=== PATIENT | male | born 1965 | race Caucasian/White ===

== ENCOUNTER 2018-09-21 09:14 | Emergency (ER) | payer OTHER ==
[2018-09-21] MEDS ORDERED: MORPHINE SULFATE 10 MG/ML INJ IV ONE (09:36)
[2018-09-21] MEDS ORDERED: ONDANSETRON HCL INJ/PF 4 MG/2 ML SDV IV ONE (09:36)
[2018-09-21] MEDS ORDERED: KETOROLAC TROMETHAMINE INJ/PF 30 MG/1 ML SDV IV ONE (09:36)
[2018-09-21] MEDS ORDERED: NORMAL SALINE 1000 ML 1,000 ML IV ONE ×2 (09:37→10:47)
--- NOTE | 2018-09-21 09:42 | ER Document Report ---
ED GI/ - General Chief Complaint: Flank Pain Stated Complaint: LEFT FLANK PAIN Time Seen by Provider: 09/21/18 09:31 Primary Care Provider: GALDINO JAIMES MD [ACTIVE STAFF] - Follow up as needed Information source: Patient Notes: Patient is a 53-year-old male that presents with around 48 hours of some left flank pain. Is intermittent. It is described as "pain". It radiates to the left lower quadrant and into the left testicle. Positive nausea and vomiting. No fevers or diarrhea. No history of kidney stones. No known family history of kidney stones. No aggravating or relieving factors. TRAVEL OUTSIDE OF THE [place] IN LAST 30 DAYS: No - HPI Patient complains to provider of: Other - See above Similar symptoms previously: No Recently seen / treated by doctor: No - Related Data Allergies/Adverse Reactions: No Known Allergies Allergy (Verified 09/21/18 09:14) Past Medical History - Social History Smoking Status: Unknown if Ever Smoked Family History: Reviewed & Not Pertinent - Past Medical History Cardiac Medical History: Denies: Hx Coronary Artery Disease, Hx Heart Attack, Hx Hypertension Pulmonary Medical History: Denies: Hx Asthma, Hx Bronchitis, Hx COPD, Hx Pneumonia Neurological Medical History: Denies: Hx Cerebrovascular Accident, Hx Seizures Musculoskeletal Medical History: Denies Hx Arthritis Past Surgical History: Reports: Hx Orthopedic Surgery - shoulder and right knee, back injury - Immunizations Hx Diphtheria, Pertussis, Tetanus Vaccination: Yes Review of Systems - Review of Systems Constitutional: denies: Fever Respiratory: denies: Cough, Short of breath Gastrointestinal: Vomiting. denies: Diarrhea Genitourinary: denies: Dysuria Musculoskeletal: denies: Leg swelling Skin: denies: Rash Neurological/Psychological: Other - no slurred speech -: Yes All other systems reviewed and negative Physical Exam - Vital signs Vitals: Temp Pulse Resp BP Pulse Ox 98.1 F 81 16 172/94 H 98 09/21/18 09:19 09/21/18 09:19 09/21/18 09:19 09/21/18 09:19 09/21/18 09:19 Notes: Reviewed vital signs and nursing note as charted by RN. CONSTITUTIONAL: Alert and oriented and responds appropriately to questions. Well-appearing; well-nourished HEAD: Normocephalic; atraumatic EYES: Sclerae non-icteric CARD: Regular rate and rhythm; no murmurs; symmetric distal pulses RESP: Normal chest excursion without splinting or tachypnea; breath sounds clear and equal bilaterally ABD/GI: Normal bowel sounds; non-distended; soft, no obvious focal tenderness : Patient has no inguinal masses, scrotal or testicular swelling or tenderness BACK: The back appears normal and is non-tender to palpation; mild left CVA tenderness without swelling or erythema noted EXT: Normal ROM in all joints; non-tender to palpation; no edema SKIN: No acute lesions noted NEURO: 5/5 bilateral upper and lower extremity strength with sensation intact to light touch PSYCH: The patient's mood and manner are appropriate. Grooming and personal hygiene are appropriate. Course - Re-evaluation Re-evalutation: 09/21/18 09:43 Given the history and physical examination we will proceed with basic labs, urine analysis, renal colic CT scan. I would like to evaluate for what I believe most likely is a kidney stone. 09/21/18 10:26 White blood cell count is unremarkable. Patient's creatinine is 1.81. I provide a liter of fluid. The only old creatinine that I can detect is from 2014 and it was less than 1 at that time. However the patient has been actively been on a ketogenic diet recently. This may explain some of the increased creatinine. 09/21/18 11:30 We do not have a urologist here at this facility so I have called [facility]. I have called and spoken directly to the urologist Dr. Holloway. He does believe the patient's increased creatinine may be secondary to the ketogenic diet. He states he is happy to see the patient in the office on Sunday at phone #[phone]. He states he is also willing to accept the patient in transfer and place a stent this afternoon. I had a discussion with the patient and his who would rather follow-up on Sunday. Pain is controlled. Vital signs are stable. We will provide 2 L of fluid, have the patient hold NSAIDs, provide Flomax and pain medications, with strict return precautions. - Vital Signs Vital signs: Temp Pulse Resp BP Pulse Ox 98.1 F 81 16 172/94 H 98 09/21/18 09:19 09/21/18 09:19 09/21/18 09:19 09/21/18 09:19 09/21/18 09:19 - Laboratory Result Diagrams: 09/21/18 09:42 09/21/18 09:42 Laboratory results interpreted by me: 09/21/18 09/21/18 09:42 09:56 Creatinine 1.81 H Est GFR ( Amer) 48 L Est GFR (Non-Af Amer) 39 L Glucose 125 H Calcium 10.3 H Urine Ketones TRACE H Discharge - Discharge Clinical Impression: Kidney stone on left side, Creatinine elevation Vomiting Qualifiers: Vomiting type: unspecified Vomiting Intractability: non-intractable Nausea presence: with nausea Qualified Code(s): R11.2 - Nausea with vomiting, unspecified Condition: Good Disposition: HOME, SELF-CARE Additional Instructions: Come back immediately with any increased pain, fevers, vomiting, inability to urinate, or any other acute problems. Please take the Flomax and the pain medi cations that we have prescribed. Please stay away from any NSAIDs including Motrin or Advil. Please call on Sunday the phone #[phone] and tell them that Dr. Gibbs, the urologist, told you to be seen in the office on Sunday. Prescriptions: Ondansetron [Zofran Odt 4 mg Tablet] 1 - 2 tab PO Q4HP PRN #10 tab.rapdis PRN Reason: Oxycodone HCl/Acetaminophen [Percocet 5-325 mg Tablet] 1 tab PO ASDIR PRN #15 tab PRN Reason: Tamsulosin HCl [Flomax 0.4 mg Cap.sr] 0.4 mg PO DAILY #7 cap.sr.24h Referrals: GALDINO JAIMES MD [ACTIVE STAFF] - Follow up as needed
[2018-09-21 10:01] LABS: ABSOLUTE LYMPHOCYTES (AUTO) 1.5 10^3/uL (0.5-4.7); ABSOLUTE MONOCYTES (AUTO) 0.9 10^3/uL (0.1-1.4); ABSOLUTE NEUT (AUTO) 6.7 10^3/uL (1.7-8.2); BASOPHILS % (AUTO) 0.2 % (0-2); EOSINOPHILS % (AUTO) 0.4 % (0-6); HEMATOCRIT 48.1 % (37.9-51.0); HEMOGLOBIN 16.7 g/dL (13.5-17.0); LYMPHOCYTES % (AUTO) 16.1 % (13-45); MEAN CORPUSCULAR HEMOGLOBIN 30.3 pg (27.0-33.4); MEAN CORPUSCULAR HGB CONC 34.8 g/dL (32.0-36.0); MEAN CORPUSCULAR VOLUME 87 fl (80-97); PLATELET COUNT 219 10^3/uL (150-450); RED BLOOD COUNT 5.51 10^6/uL (4.35-5.55); RED CELL DISTRIBUTION WIDTH 13.1 % (11.5-14.0); SEGMENTED NEUTROPHILS % (AUTO) 73.3 % (42-78); TOTAL CELLS COUNTED % (AUTO) 100 %; WHITE BLOOD COUNT 9.1 10^3/uL (4.0-10.5)
[2018-09-21 10:13] LABS: ANION GAP 15 (5-19); BLOOD UREA NITROGEN 17 mg/dL (7-20); CALCIUM 10.3 mg/dL (8.4-10.2); CARBON DIOXIDE 28 mmol/L (22-30); CHLORIDE 100 mmol/L (98-107); GLUCOSE 125 mg/dL (75-110); POTASSIUM 4.8 mmol/L (3.6-5.0); SODIUM 143.2 mmol/L (137-145)
--- NOTE | 2018-09-21 10:44 | RADIOLOGY REPORT (SQ) ---
EXAM DESCRIPTION: CT ABD/PELVIS NO ORAL OR IV COMPLETED DATE/TIME: 09/21/2018 10:17 am REASON FOR STUDY: flank pain; left COMPARISON: CT abdomen pelvis 07/06/2014 TECHNIQUE: CT scan of the abdomen and pelvis performed without intravenous or oral contrast. Images reviewed with lung, soft tissue, and bone windows. Reconstructed coronal and sagittal MPR images revi ewed. All images stored on PACS. All CT scanners at this facility use dose modulation, iterative reconstruction, and/or weight based d osing when appropriate to reduce radiation dose to as low as reasonably achievable (ALARA). [facility]: Dose Right [facility]: CareDose [facility]: Dose Right [facility]: Teradose 4D [facility]: Smart Project [employer] RADIATION DOSE: CT Rad equipment meets quality standard of care and radiation dose reduction techniq ues were employed. CTDIvol: 10.0 mGy. DLP: 568 mGy-cm.mGy. LIMITATIONS: None. FINDINGS: A 5 mm calculus is present in the left distal ureter at the ureterovesical junction, best shown on axial image 78. There is mild to moderate left hydronephrosis and hydroureter. No other le ft ureteral stones are present. Elsewhere in the left kidney, multiple less than 5 mm upper and lower pole intrarenal nonobstructive calculi are present. No left renal cysts or masses. LOWER CHEST: No significant findings. No nodules or infiltrates. NON-CONTRASTED LIVER, SPLEEN, ADRENALS: Evaluation limited by lack of IV contrast. No identified sign ificant masses. PANCREAS: No masses. No peripancreatic inflammatory changes. GALLBLADDER: No identified stones by CT criteria. No inflammatory changes to suggest cholecystitis. RIGHT KIDNEY AND URETER: No suspicious masses. Assessment limited by lack of IV contrast. Multiple right-sided intrarenal nonobstructive calculi less than 3 mm in size. No hydronephrosis or hydroure ter. LEFT KIDNEY AND URETER: As above AORTA AND RETROPERITONEUM: No aneurysm. No retroperitoneal masses or adenopathy. BOWEL AND PERITONEAL CAVITY: No obvious masses or inflammatory changes. No free fluid. APPENDIX: Normal. PELVIS, BLADDER, AND ABDOMINAL WALL:No abnormal masses. No free fluid. Bladder normal. BONES: No significant findings. OTHER: No other significant finding. IMPRESSION: 5 mm stone in the distal left ureter at the ureterovesical junction, causing mild to mod erate left hydronephrosis and hydroureter COMMENT: Quality ID # [id number]: Final reports with documentation of one or more dose reduction techniques (e.g., Automated exposure control, adjustment of the mA and/or kV according to patient size, use of iterative reconstruction technique) TECHNICAL DOCUMENTATION: JOB ID: [id number] [employer]- All Rights Reserved Reading location - IP/workstation name: [email or web address]
[2018-09-21 10:46] LABS: APPEARANCE,URINE CLEAR; BILIRUBIN,URINE NEGATIVE (NEGATIVE); COLOR,URINE YELLOW; GLUCOSE, URINE NEGATIVE (NEGATIVE); KETONES,URINE TRACE mg/dL (NEGATIVE); LEUKOCYTE ESTERASE,URINE NEGATIVE (NEGATIVE); NITRITE,URINE NEGATIVE (NEGATIVE); PROTEIN,URINE NEGATIVE (NEGATIVE); UROBILINOGEN,URINE NEGATIVE mg/dL (<2.0)
[2018-09-21] MEDS ORDERED: TAMSULOSIN HCL 0.4 MG CAP.SR.24H PO ONE (10:47)
[2018-09-21 12:32] VITALS: BP 144/91
== END 2018-09-21 12:34 | disposition home or self-care (01) ==
LOC: ER 09:14
DX: N20.0 Calculus of kidney (principal); R79.89 Other specified abnormal findings of blood chemistry; R10.9 Unspecified abdominal pain; R11.2 Nausea with vomiting, unspecified
CPT/HCPCS: 99284; 96361; 96374; 96375; 36415; 85025; 80048; 81001; 74176; J1885; J2270; J2405; J7030